=== PATIENT | female | born 2000 | race Caucasian/White ===

== ENCOUNTER → 2020-04-12 | Outpatient (CLI) | payer OTHER | LOC: COL.RAD 06:51 | DX: R10.11 Right upper quadrant pain (principal) | CPT/HCPCS: A9537; J2270; J2805 ==

== ENCOUNTER → 2020-07-03 | Outpatient (CLI) | payer OTHER | LOC: COL.RAD 07:52 | DX: R10.11 Right upper quadrant pain (principal); R68.81 Early satiety; R11.2 Nausea with vomiting, unspecified | CPT/HCPCS: A9541 ==